=== PATIENT | female | born 1990 | race African-American/Black ===

== ENCOUNTER 2019-10-22 19:00 | Outpatient (CLI) | payer BC | END 2019-10-22 19:01 | disposition home or self-care (01) | LOC: SLEEPLAB 19:00 | PROVIDERS: ATTEND Family Medicine | DX: G47.33 Obstructive sleep apnea (adult) (pediatric) (principal); R53.83 Other fatigue; E66.9 Obesity, unspecified | CPT/HCPCS: 95810 ==

== ENCOUNTER 2019-11-04 19:00 | Outpatient (CLI) | payer BC | END 2019-11-04 19:01 | disposition home or self-care (01) | LOC: SLEEPLAB 19:00 | PROVIDERS: ATTEND Family Medicine | DX: G47.33 Obstructive sleep apnea (adult) (pediatric) (principal); R53.83 Other fatigue; R06.83 Snoring | CPT/HCPCS: 95811 ==

== ENCOUNTER 2019-12-17 10:06 | Outpatient (CLI) | payer BC | END 2019-12-17 10:07 | disposition home or self-care (01) | LOC: DTY/OP 10:06 | PROVIDERS: ATTEND Surgery | DX: E66.01 Morbid (severe) obesity due to excess calories (principal) | CPT/HCPCS: 97802 ==

== ENCOUNTER 2020-01-13 16:30 | Inpatient (IN) | payer BC, OTHER ==
[2020-01-16] MEDS ORDERED: Heparin 5,000 UNITS/ML VIAL ONE (09:44)
[2020-01-16] MEDS ORDERED: Midazolam HCl 2 mg/2 ml Vial ONE ×2 (10:18→10:33)
[2020-01-16] MEDS ORDERED: Bupivacaine 0.25% HCL 30 ML VIAL ONE (10:31)
[2020-01-16] MEDS ORDERED: Lidocaine 1% w/Epinephrine 1:100K 20 ML VIAL ONE (10:31)
[2020-01-16] MEDS ORDERED: Famotidine/PF 20 mg/2ml Vial ONE (10:32)
[2020-01-16] MEDS ORDERED: Fentanyl 100 MCG/2 ML VIAL ONE ×2 (10:33→12:15)
[2020-01-16] MEDS ORDERED: Scopolamine 1.5 mg/72 hour Patch ONE (10:33)
[2020-01-16] MEDS ORDERED: SUGAMMADEX SODIUM 200 MG/2 ML VIAL ONE (10:39)
[2020-01-16] MEDS ORDERED: diphenhydrAMINE 50 MG/ML VIAL IM PRN (12:14)
[2020-01-16] MEDS ORDERED: Ondansetron PF 4 MG/2 ML Vial IVP PRN ×2 (12:14→14:49)
[2020-01-16] MEDS ORDERED: diphenhydrAMINE 50 MG/ML VIAL IVP PRN ×2 (12:14→14:49)
[2020-01-16] MEDS ORDERED: Naloxone HCl 0.4 mg/ml Vial IV PRN (12:14)
[2020-01-16] MEDS ORDERED: HYDROmorphone 10 mg/100 ml CADD IVPB PRN (12:14)
[2020-01-16] MEDS ORDERED: Promethazine HCl 25 MG/ML VIAL IM PRN ×3 (12:14→14:49)
[2020-01-16] MEDS ORDERED: Zolpidem Tartrate 5 MG TAB PO PRN (12:14)
[2020-01-16] MEDS ORDERED: diphenhydrAMINE 25 MG CAP PO PRN (12:14)
[2020-01-16] MEDS ORDERED: Communication Order-Pharmacy FS SCH (12:15)
[2020-01-16] MEDS ORDERED: Promethazine HCl 25 MG/ML VIAL ONE (12:15)
[2020-01-16] MEDS ORDERED: Ondansetron PF 4 MG/2 ML Vial ONE ×2 (12:15→12:16)
[2020-01-16] MEDS ORDERED: Lidocaine 1% PF 5 ML VIAL ONE (12:16)
[2020-01-16] MEDS ORDERED: Rocuronium Bromide 10 MG/ML (10ML VIAL) ONE (12:16)
[2020-01-16] MEDS ORDERED: Dexamethasone 20 MG/5 ML VIAL ONE (12:16)
[2020-01-16] MEDS ORDERED: Succinylcholine Chloride 20 MG/ML 10 ml SYRINGE FS ONE (12:16)
[2020-01-16] MEDS ORDERED: PROPOFOL 200 MG/20 ML VIAL ONE (12:16)
[2020-01-16] MEDS ORDERED: Ondansetron HCl/PF 4 MG/2 ML Vial IVP PRN (12:21)
[2020-01-16] MEDS ORDERED: Promethazine HCl 25 MG/ML VIAL SLOW IVP PRN (12:21)
[2020-01-16] MEDS ORDERED: D5 1/2 NS w/20 mEq KCL 1,000 ML ONE (13:28)
[2020-01-16] MEDS ORDERED: Dextrose 5% in Water 1,000 ML IV PRN (14:49)
[2020-01-16] MEDS ORDERED: Hydrocodone-Acetamin 15 ML UDCUP PO PRN (14:49)
[2020-01-16] MEDS ORDERED: hydrALAZINE 20 MG/ML VIAL SLOW IVP PRN (14:49)
[2020-01-16] MEDS ORDERED: clonazePAM 0.5 MG TAB PO PRN ×2 (14:49→15:10)
[2020-01-16] MEDS ORDERED: Dextrose 50% Abboject 50 ML SYRINGE SLOW IVP PRN (14:49)
[2020-01-16 15:05] VITALS: BMI 42.1
[2020-01-16] MEDS: D5 1/2 NS w/20 mEq KCL 1,000 ML IV SCH ×2 (16:04→20:27)
--- NOTE | 2020-01-16 18:01 | OP ---
DATE OF PROCEDURE: 01/16/2020 PREOPERATIVE DIAGNOSES: 1. Morbid obesity with a body mass index of 42. 2. Hypertension. 3. Sleep apnea. POSTOPERATIVE DIAGNOSES: 1. Morbid obesity with a body mass index of 42. 2. Hypertension. 3. Sleep apnea. PROCEDURES PERFORMED: 1. Laparoscopic sleeve gastrectomy with GORE staple line reinforcement and 38-[place] bougie. 2. Esophagogastroduodenoscopy. ANESTHESIA: General. ESTIMATED BLOOD LOSS: Minimal. COMPLICATIONS: None. SPECIMEN: Stomach. FINDINGS: Normal postoperative EGD. DESCRIPTION OF PROCEDURE: The patient was taken to the operating room and laid supine on the operating room table. After general anesthetic was obtained, the arms and legs were double strapped to bariatric table. OG tube was brought in and used to decompress the stomach. The abdomen was prepped and draped in a sterile fashion. Left subcostal 5-mm Optiview trocar placed in the usual fashion and high-flow pneumoperitoneum was obtained. Left and right abdominal 12-mm ports as well as a right subcostal 5-mm port were placed under direct visualization. A 5-mm incision made at the xiphoid and Lisa was used to raise the liver off the GE junction. Short gastrics were taken down to a distance of 6 cm proximal to the pylorus. Short gastrics were taken down all the way to the left neida of diaphragm. Left neida, posterior fundus, and angle of His were completely dissected. A 38 bougie was brought in and its tip left in the antrum of the stomach. The OG tube had been removed. Multiple loads of an Brave stapling device used to form the sleeve. The 1st was fired up at a distance of 6 cm proximal to the pylorus, angled up towards the incisura. Multiple loads were then fired up along the bougie. Stomach was completely transected at the angle of His. The stomach was removed from the left abdominal incision and the fascial defect was closed using GraNee needle and 0 Vicryl tie. EGD scope was passed through the esophagus, stomach to the level of duodenum without obstruction. There was no stricture at the incisura. There was no involvement of the GE junction with the staple line. There was no air leakage or bleeding along the staple line. EGD scope was used to decompress the stomach and was pulled and removed. Lisa retractor was removed under direct visualization without bleeding. All port sites were infiltrated using local anesthetic and all port sites were removed under direct visualization without bleeding and pneumoperitoneum was let down. The Vicryl was used to close the fascial defect above the left-sided incision. All incisions were irrigated and closed using 4-0 Monocryl and Dermabond. The patient was sent to Recovery in stable condition. All instrument counts, needle counts, and lap counts were correct. Job ID: [id number]
[2020-01-16] MEDS ORDERED: Enoxaparin Sodium 40 MG/0.4 ML SYRINGE SC SCH (21:00)
[2020-01-17 05:34] LABS: #Eosinphils 0.1 thou/uL (0.0-0.7); #Lymphocytes 1.9 thou/uL (1.20-3.40); #Monocytes 0.5 thou/uL (0.11-0.59); #Neutrophils 7.5 thou/uL (1.40-6.50); %Basophils 0.2 % (0.0-1.0); %Eosinophils 0.5 % (0.0-10.0); %Lymphocytes 18.6 % (21.0-51.0); %Monocytes 5.4 % (0.0-10.0); %Neutrophils 75.2 % (42.0-75.0); Hemoglobin 13.3 g/dL (12.0-16.0); Mean Corpuscular HGB CONC 34.2 g/dL (32.0-36.0); Mean Corpuscular Hemoglobin 30.2 pg (27.0-31.0); Mean Corpuscular Volume 88.3 fL (78.0-98.0); Mean Platelet Volume 8.7 fL (7.4-10.4); Platelet Count 300 thou/uL (130-400); RBC Distribution Width 11.4 % (11.5-14.5); Red Blood Cell (RBC) Count 4.42 mill/uL (4.20-5.40)
[2020-01-17 05:58] LABS: Anion Gap 12 mmol/L (10-20); BUN (Urea Nitrogen) 6 mg/dL (7.0-18.7); Calc. Creatinine Clearance 207 mL/min (70-130); Calcium 9.3 mg/dL (7.8-10.44); Carbon Dioxide 24 mmol/L (22-29); Chloride 103 mmol/L (98-107); Estimated GFR-MDRD Greater than 90; Glucose 119 mg/dL (70-105); Potassium 4.2 mmol/L (3.5-5.1); Sodium 135 mmol/L (136-145)
--- NOTE | 2020-01-17 06:31 | PDOC.GSPN ---
Surgery Progress Note: Subj - Subjective Narrative: Patient is a 29 year old female who is post op day 1 from a sleeve gastrectomy. She reports some nausea and dry heaving last night. She thinks her symptoms were worse after drinking too much water or after receiving her IV hydromorphone. After receiving phenergan, her symptoms improved. She notes some mild abdominal soreness and bloating. She is ambulating without difficulty. No problems toileting. Denies any fever, chills, diarrhea, acid reflux, cough, shortness of breath. Surgery Progress Note: Obj - Vital signs Vital signs: Vital Signs - Most Recent Temp Pulse Resp BP Pulse Ox 98.4 F 76 17 152/90 H 98 01/17/20 05:02 01/17/20 05:02 01/17/20 05:02 01/17/20 05:02 01/17/20 05:02 - Physical Exam General: no distress Cardiovascular: regular rate and rhythm Respiratory: clear to auscultation Abdomen: soft, non tender, decreased bowel sounds Wound: healing well (5 incision sites without erythema or drainage) Surgery Progress Note: Results - Labs Result Diagrams: 01/17/20 05:14 01/17/20 05:15 Lab results: Laboratory Results - last 24 hr 01/17/20 01/17/20 05:14 05:15 WBC 10.0 RBC 4.42 Hgb 13.3 Hct 39.0 MCV 88.3 MCH 30.2 MCHC 34.2 RDW 11.4 L Plt Count 300 MPV 8.7 Neutrophils % 75.2 H Lymphocytes % 18.6 L Monocytes % 5.4 Eosinophils % 0.5 Basophils % 0.2 Neutrophils # 7.5 H Lymphocytes # 1.9 Monocytes # 0.5 Eosinophils # 0.1 Basophils # 0.0 Sodium 135 L Potassium 4.2 Chloride 103 Carbon Dioxide 24 Anion Gap 12 BUN 6 L Creatinine 0.76 Estimated GFR (MDRD) Greater than 90 Glucose 119 H Calcium 9.3 Surgery Progress Note: A/P - Plan Plan: s/p sleeve gastrectomy due to morbid obesity: Patient with ongoing nausea, which could be related to anesthesia, pain medication, or drinking too much water too quickly. Will monitor today and see how she tolerates liquids. Patient is encouraged to continue walking and using her incentive spirometry. Once discharged, she has been advised to follow up in the office in 2 weeks.
[2020-01-17] MEDS: D5 1/2 NS w/20 mEq KCL 1,000 ML IV SCH ×2 (06:46→15:26)
[2020-01-17] MEDS ORDERED: Pantoprazole 40 MG VIAL IVP SCH (09:00)
[2020-01-17] MEDS ORDERED: Loratadine 10 MG TAB PO SCH (09:00)
[2020-01-17] MEDS ORDERED: Escitalopram Oxalate 10 mg Tablet PO SCH (09:00)
[2020-01-17] MEDS ORDERED: clonazePAM 0.5 MG TAB PO PRN (09:41)
[2020-01-17] MEDS ORDERED: Hydrocodone-Acetamin 15 ML UDCUP PO PRN (09:41)
[2020-01-17 11:54] VITALS: TEMP 97.9
[2020-01-17] MEDS ORDERED: Acetaminophen 650 MG/20.3 ML UDCUP PO SCH (12:45)
[2020-01-17 14:00] VITALS: BP 130/90
== END 2020-01-17 15:25 | disposition home or self-care (01) | DRG 621 ==
LOC: SURG A 01-16 09:23 → SURG B 01-16 14:18 → EDSTATUS 01-16 16:30
PROVIDERS: ADMIT Surgery; ATTEND Surgery
PROC: 0DB64Z3 Excision of Stomach, Percutaneous Endoscopic Approach, Vertical (ICD-10-PCS; principal; 2020-01-16)
PROC: 0DJ08ZZ Inspection of Upper Intestinal Tract, Via Natural or Artificial Opening Endoscopic (ICD-10-PCS; 2020-01-16)
DX: E66.01 Morbid (severe) obesity due to excess calories (principal); I10 Essential (primary) hypertension; G47.30 Sleep apnea, unspecified; F41.9 Anxiety disorder, unspecified; Z68.41 Body mass index [BMI] 40.0-44.9, adult
CPT/HCPCS: 36415; 71046; 80048; 80053; 83036; 84703; 85025; 87635; 88307; 88312; 93005; C9113; J0690; J1100; J1644; J1650; J2250; J2405; J2550; J2704; J3010; J3480; S0020; S0028; U0003